=== PATIENT | female | born 1945 | race Caucasian/White ===

== ENCOUNTER 2021-10-24 09:37 | Outpatient (CLI) | payer MEDICARE, BC, SELFPAY ==
[2021-10-24 11:32] VITALS: BMI 48.9
== END 2021-10-24 09:38 | disposition home or self-care (01) ==
LOC: NUTRITION 09:41
PROVIDERS: PCP Family Medicine; Visit Provider Family Medicine
DX: E66.9 Obesity, unspecified (principal); Z68.42 Body mass index [BMI] 45.0-49.9, adult; Z71.3 Dietary counseling and surveillance
CPT/HCPCS: 99211

== ENCOUNTER 2022-10-03 06:33 | Day surgery (SDC) | payer MEDICARE, BC, SELFPAY ==
[2022-10-03] MEDS: TETRACAINE 0.5% OPHTH 1 DROP EYE-RIGHT ×2 (06:45→06:58)
--- NOTE | 2022-10-03 06:47 | SUR.PREOP ---
The eye drops brought by the patient (Ketorolac and Prednisolone) are examined and I have determined they are labeled by the patient's pharmacy for this patient as prescribed by the surgeon. The bottles are intact, recently obtained and appear to be correct.
[2022-10-03] MEDS: KETOROLAC OPHTH 0.5% 1 DROP EYE-RIGHT ×3 (06:55→07:14)
[2022-10-03 07:02] VITALS: BMI 50.5
[2022-10-03 07:08] VITALS: BP 108/63; PULSE 69; RESP 20; TEMP 36.2; O2SAT 95
[2022-10-03] MEDS: TETRACAINE 0.5% OPHTH 2 DROP EYE-RIGHT (08:06)
[2022-10-03] MEDS: BALANCED SALT IRRIG SOLN 15 ML EYE-RIGHT (08:11)
--- NOTE | 2022-10-03 08:31 | W.ANESCHARGE ---
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
[2022-10-03 08:41] VITALS: BP 120/62; PULSE 60; RESP 16; TEMP 36.6; O2SAT 97
--- NOTE | 2022-10-03 08:46 | W.PM.OPTPROC ---
Procedure Note Date of procedure: 10/03/22 Will [facility] bill your pro fee for this procedure?: Yes Procedure Description: SURGEON: Erin Ho MD PREOPERATIVE DIAGNOSIS: Nuclear sclerotic cataract, right eye. POSTOPERATIVE DIAGNOSIS: Nuclear sclerotic cataract, right eye. NAME OF OPERATION: Phacoemulsification of cataract with posterior chamber intraocular lens implantation in the right eye. ANESTHESIA: Topical. ESTIMATED BLOOD LOSS: Less than 2 cc. COMPLICATIONS: None. PATHOLOGY SPECIMEN: None. INDICATIONS: See consult note for details. The risks, benefits and alternatives of the procedure were explained to the patient, who elected to proceed and signed informed consent to do so. PROCEDURE: The patient was brought to the pre-holding area where the right eye was identified as the operative eye. I placed my initials above this eye. The patient received eye drops consisting of 0.5% tetracaine, 1% tropicamide, 10% phenylephrine, and 0.5% ketorolac. The patient was then brought to the operating room where the right eye was again identified as the operative eye. The eye was prepped with Betadine and draped in the usual sterile ophthalmic fashion. A #15 super-sharp blade was used to create a paracentesis site. 1% non-preserved intracameral lidocaine was injected into the anterior chamber. Endocoat was injected into the anterior chamber. A 2.4 mm keratome was used to create a three-plane self-sealing incision 1 mm anterior to the temporal limbus. A cystotome was used to create an anterior capsular leaflet. The Utrata forceps were used to extend this to form a continuous curvilinear capsulorrhexis. Hydrodissection was performed. The cataract was removed with phacoemulsification using the iinems-mea-obzored technique. The irrigation and aspiration tip was used to remove the remaining cortex. Healon was injected into the capsular bag. An SHRUTI ZCB00 intraocular lens of 20.5 diopters was injected into the capsular bag. The irrigation and aspiration tip was used to remove the remaining viscoelastic. Balanced salt solution on a cannula was used to hydrate the wound, and the wound was found to be watertight. The pupil was noted to be round. DISPOSITION: The patient was taken to the recovery room and discharged to home in stable condition. The patient was instructed to call me or go to the emergency department with any sudden change, including dramatic loss of vision, severe pain in the eye or eyebrow region, nausea, or vomiting. The patient will follow up in the clinic tomorrow morning.
== END 2022-10-03 09:25 | disposition home or self-care (01) ==
PROVIDERS: PCP Family Medicine; Visit Provider Ophthalmology
PROC: (CPT 66984; principal; 2022-10-03 06:45)
DX: H25.11 Age-related nuclear cataract, right eye (principal)
CPT/HCPCS: 66984; 00142; 99100; A9270; J2250; V2632

== ENCOUNTER 2023-01-10 11:00 | Outpatient (RCR) | payer MEDICARE, BC, SELFPAY | END 2023-05-10 23:59 | disposition home or self-care (01) | PROVIDERS: PCP Family Medicine; Visit Provider Family Medicine | DX: M25.571 Pain in right ankle and joints of right foot (principal); G89.29 Other chronic pain; R26.81 Unsteadiness on feet; R26.9 Unspecified abnormalities of gait and mobility; M62.81 Muscle weakness (generalized); M25.562 Pain in left knee; M25.561 Pain in right knee; Z51.89 Encounter for other specified aftercare | CPT/HCPCS: 97110; 97162 ==

== ENCOUNTER 2023-04-20 19:58 | Outpatient (CLI) | payer MEDICARE, BC, SELFPAY | END 2023-04-20 19:59 | disposition home or self-care (01) | LOC: AMB 04-22 10:37 | PROVIDERS: PCP Family Medicine; Visit Provider Family Medicine | DX: R42 Dizziness and giddiness (principal); T50.905A Adverse effect of unspecified drugs, medicaments and biological substances, initial encounter; Y92.009 Unspecified place in unspecified non-institutional (private) residence as the place of occurrence of the external cause | CPT/HCPCS: A0425; A0427 ==

== ENCOUNTER 2023-04-20 20:07 | Emergency (ER) | payer MEDICARE, BC, SELFPAY ==
[2023-04-20 20:17] VITALS: BP 142/86; PULSE 111; RESP 16; TEMP 36.6; O2SAT 96; BMI 50.0
--- NOTE | 2023-04-20 20:28 | ED.ALLEREA ---
HPI - Allergic Reaction General Date Seen: 04/20/23 <Richmond Rodriguez - Last Filed: 04/23/23 00:33> Chief complaint: Allergic Reaction <Richmond Rodriguez - Last Filed: 04/23/23 00:33> Stated complaint: Allergic reaction <Richmond Rodriguez - Last Filed: 04/23/23 00:33> Time Seen by Provider: 04/20/23 20:16 <Richmondcaridad Rodriguez - Last Filed: 04/23/23 00:33> Source: patient <Richmond Rodriguez DO - Last Filed: 04/23/23 00:33> Mode of arrival: ambulatory <Richmond Rodriguez Last Filed: 04/23/23 00:33> Limitations: no limitations <Richmond Rodriguez Filed: 04/23/23 00:33> History of Present Illness HPI narrative: Patient is a 78-year-old female presenting to the emergency department for an allergic reaction. She states roughly an hour prior to arrival she developed a pruritic rash on her head, chest, arms. She took 2 25 mg of Benadryl prior to EMS arrival. She denies chest pain, shortness breath, lightheadedness, dizziness, abdominal pain, nausea/vomiting, fevers, chills. She states this has happened before a couple years ago and she was given steroids which helped with the symptoms. Cease states the rash seems to be getting better on her lower abdomen but she thinks it is worse on her chest. She states she is still very itchy. Is not aware of any changes to her medications, laundry detergent, shampoos, soaps or any thing else that might have started this rash. No nothing she can think of what she got a CT scan with IV contrast 6 days ago. No other concerns noted <Richmond Rigoberto TurkReno, - Last Filed: 04/23/23 00:33> Related Data Home medications: Home Medications Medication Instructions Recorded Confirmed Lactobacillus rhamnosus GG 5 1 tab PO DAILY 09/18/22 09/19/22 billion cell chewable tablet (Culturelle Kids Probiotics) albuterol sulfate 90 mcg/actuation 1 - 2 inh inhalation Q4-6H PRN 06/06/23 06/21/23 aerosol inhaler (Ventolin HFA) alpha lipoic acid 200 mg capsule 200 mg PO DAILY 09/18/22 09/19/22 ascorbic acid (vitamin C) 1,000 mg 1 g PO DAILY 09/18/22 09/19/22 capsule calcium carbonate 1,000 tab PO PRN 09/18/22 mg-magnesium hydroxide 200 mg chewable tablet (Antacid (calcium carb-magnesium hyd)) epinephrine 0.3 mg/0.3 mL 0.3 ml IM Q5-15M PRN 09/18/22 09/19/22 injection, auto-injector (EpiPen 2-Ino) magnesium glycinate 100 mg tablet 400 mg PO DAILY 09/18/22 09/19/22 (Mag Glycinate) magnesium oxide 400 mg (241.3 mg 400 mg PO DAILY 09/18/22 09/19/22 magnesium) tablet (MagOx) vitamin B complex 1 cap PO DAILY 09/18/22 09/19/22 Previous Rx's Medication Instructions Recorded prednisone 20 mg tablet 40 mg (2 x 20 mg) PO DAILY #8 tabs 04/20/23 <Richmond Rodriguez DO - Last Filed: 04/23/23 00:33> Allergies/adverse reactions: Allergies Allergy/AdvReac Type Severity Reaction Status Date / Time lactose Allergy Verified 09/19/22 07:29 latex Allergy Verified 09/19/22 07:29 perfume Allergy Verified 09/19/22 07:29 Sulfa (Sulfonamide Allergy Verified 09/19/22 07:29 Antibiotics) <Richmond Rodriguez DO - Last Filed: 04/23/23 00:33> Review of Systems Status of ROS Reports: 10 or more systems reviewed and unremarkable except as noted in History and below <Richmond Rodriguez DO - Last Filed: 04/23/23 00:33> [facility] Medical History: Medical History Binge eating disorder ?F50.81 - Binge eating disorder (ICD-10) Pure hypercholesterolemia ?E78.00 - Pure hypercholesterolemia, unspecified (ICD-10) Kidney stones ?N20.0 - Calculus of kidney (ICD-10) Hx of osteopenia ?Z87.39 - Personal history of other diseases of the musculoskeletal system and connective tissue (ICD-10) 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 ?F33.41 - Major depressive disorder, recurrent, in partial remission (ICD-10) DJD (degenerative joint disease) of knee ?M17.9 - Osteoarthritis of knee, unspecified (ICD-10) Mild intermittent asthma without complication ?J45.20 - Mild intermittent asthma, uncomplicated (ICD-10) <Richmond Rodriguez DO - Last Filed: 04/23/23 00:33> Surgical History: Surgical History Hx of skin graft ?Z94.5 - Skin transplant status (ICD-10) Hx of left breast biopsy ?Z98.890 - Other specified postprocedural states (ICD-10) History of right breast biopsy ?Z98.890 - Other specified postprocedural states (ICD-10) Hx of total knee replacement ?Z96.659 - Presence of unspecified artificial knee joint (ICD-10) <Richmond Rodriguez DO - Last Filed: 04/23/23 00:33> Social History: Social History Smoking Status: Never smoker Do you use any of these nicotine containing products: None How often do you have a drink containing alcohol: never How often do you have six or more drinks on one occasion: Never AUDIT-C Alcohol total score: 0 Non-prescribed substance use: denies use Caffeine: Yes Are you using contraception or practicing any form of control: No <Richmond Rodriguez DO - Last Filed: 04/23/23 00:33> Exam Narrative: Exam Narrative: Const: Well-nourished, Well-developed, in mild distress Eyes: PERRL, no conjunctival injection, and symmetrical lids HENT: Atraumatic external nose and ears. Moist mucous membranes. Neck: Symmetric, trachea midline, No thyromegaly. CVS: RRR, No murmurs or gallops. Peripheral pulses 2+ and equal in all extremities RESP: Unlabored respiratory effort. Clear to auscultation bilaterally. GI: Nontender/Nondistended, No rebound or guarding. MSK:Extremities w/o deformity, Normal Active ROM Skin: Warm, Dry. Erythematous rash seen to chest and arms Neuro: Normal Muscle tone, No focal neurological deficits. Psych: Awake, Alert, & Oriented x3. Appropriate mood and affect. <Richmond Rodriguez DO - Last Filed: 04/23/23 00:33> Const: Vital Signs, click to edit/add: Vital Signs - 24 hr 04/20/23 20:17 Temperature 97.9 F Pulse Rate [Pulse Oximeter] 111 H Respiratory Rate 16 Blood Pressure [Ri ght Upper Arm] 142/86 H Pulse Oximetry 96 Oxygen Delivery Me thod Room Air <Richmond Rodriguez DO - Last Filed: 04/23/23 00:33> Vital Signs, click to edit/add: Vital Signs - 24 hr 04/20/23 20:17 Temperature 97.9 F Pulse Rate [Pulse Oximeter] 111 H Respiratory Rate 16 Blood Pressure [Ri ght Upper Arm] 142/86 H Pulse Oximetry 96 Oxygen Delivery Me thod Room Air <Abdoulaye Nicole MD - Last Filed: 05/03/23 20:36> Course Course ED Course: Corey -- Received Ms. Rolle at change of shift pending medication effect for allergic reaction from uncertain exposure. Was already noted to be improving. Waiting standard post medication time. Records and allergies are reviewed Improved and without further event. See discharge plan per Dr. Rodriguez <Abdoulaye Nicole MD - Last Filed: 05/03/23 20:36> Vital Signs Vital signs: Initial Vital Signs Temperature 97.9 F 04/20/23 20:17 Temperature Source Temporal Artery Scan 04/20/23 20:17 Pulse Rate 111 H 04/20/23 20:17 Pulse Rhythm Regular 04/20/23 20:17 Respiratory Rate 16 04/20/23 20:17 Blood Pressure 142/86 H 04/20/23 20:17 Blood Pressure Mean 104 04/20/23 20:17 Blood Pressure Position Sitting 04/20/23 20:17 Pulse Oximetry 96 04/20/23 20:17 Oxygen Delivery Method Room Air 04/20/23 20:17 Vital Signs Temperature 97.9 F 04/20/23 20:17 Pulse Rate 111 H 04/20/23 20:17 Respiratory Rate 16 04/20/23 20:17 Blood Pressure 142/86 H 04/20/23 20:17 Pulse Oximetry 96 04/20/23 20:17 Oxygen Delivery Method Room Air 04/20/23 20:17 Temperature 97.9 F 04/20/23 20:17 Pulse Rate 70 04/20/23 21:13 Respiratory Rate 16 04/20/23 21:13 Blood Pressure 124/75 04/20/23 21:13 Pulse Oximetry 97 04/20/23 21:13 Oxygen Delivery Method Room Air 04/20/23 21:13 <Richmond Rodriguez DO - Last Filed: 04/23/23 00:33> Initial Vital Signs Temperature 97.9 F 04/20/23 20:17 Temperature Source Temporal Artery Scan 04/20/23 20:17 Pulse Rate 111 H 04/20/23 20:17 Pulse Rhythm Regular 04/20/23 20:17 Respiratory Rate 16 04/20/23 20:17 Blood Pressure 142/86 H 04/20/23 20:17 Blood Pressure Mean 104 04/20/23 20:17 Blood Pressure Position Sitting 04/20/23 20:17 Pulse Oximetry 96 04/20/23 20:17 Oxygen Delivery Method Room Air 04/20/23 20:17 Vital Signs Temperature 97.9 F 04/20/23 20:17 Pulse Rate 111 H 04/20/23 20:17 Respiratory Rate 16 04/20/23 20:17 Blood Pressure 142/86 H 04/20/23 20:17 Pulse Oximetry 96 04/20/23 20:17 Oxygen Delivery Method Room Air 04/20/23 20:17 Temperature 97.9 F 04/20/23 20:17 Pulse Rate 70 04/20/23 21:13 Respiratory Rate 16 04/20/23 21:13 Blood Pressure 124/75 04/20/23 21:13 Pulse Oximetry 97 04/20/23 21:13 Oxygen Delivery Method Room Air 04/20/23 21:13 <Abdoulaye Nicole MD - Last Filed: 05/03/23 20:36> Medications Administered Medications: Discontinued Medications Generic Name Dose Route Start Last Admin Trade Name Rogers PRN Reason Stop Dose Admin Famotidine 40 mg 04/20/23 20:21 04/20/23 20:39 Famotidine 20 Mg Tablet PO 04/20/23 20:22 40 mg ONCE ONE Administration Methylprednisolone Sodium Succinate 125 mg 04/20/23 20:21 04/20/23 20:39 Methylprednisolone Sod Succ 62.5 Mg/Ml (125) IVP 04/20/23 20:22 125 mg ONCE ONE Administration Prednisone 20 mg 04/21/23 09:00 04/20/23 22:35 Prednisone 20 Mg Tablet PO 20 mg BID KIMBERLEY Administration <Richmond Rodriguez DO - Last Filed: 04/23/23 00:33> Discontinued Medications Generic Name Dose Route Start Last Admin Trade Name Rogers PRN Reason Stop Dose Admin Famotidine 40 mg 04/20/23 20:21 04/20/23 20:39 Famotidine 20 Mg Tablet PO 04/20/23 20:22 40 mg ONCE ONE Administration Methylprednisolone Sodium Succinate 125 mg 04/20/23 20:21 04/20/23 20:39 Methylprednisolone Sod Succ 62.5 Mg/Ml (125) IVP 04/20/23 20:22 125 mg ONCE ONE Administration Prednisone 20 mg 04/21/23 09:00 04/20/23 22:35 Prednisone 20 Mg Tablet PO 20 mg BID KIMBERLEY Administration <Abdoulaye Nicole MD - Last Filed: 05/03/23 20:36> MDM - Allergic Reaction MDM Narrative Medical decision making narrative: Patient is a 78-year-old female presenting to the emergency department for a rash. Initially when she arrived she is tachycardic which she was anxious at that time and when I examined her heart rate was in the low 90s. She is not having any signs of anaphylaxis at this time. She thinks it could be related to COVID but she is not having any symptoms of COVID. She does want a COVID test which was ordered. She was given Solu-Medrol as she states that helped last time with her symptoms. She will also be given some Pepcid to help with the rash. She does note she thinks it is getting better on her abdomen already. <Richmond Rodriguez DO - Last Filed: 04/23/23 00:33> Lab Data Labs: Lab Results 04/20/23 Range/Units 20:45 SARS-CoV-2 (PCR) Negative SARS-CoV-2 (Negative) Influenza Type A (PCR) Negative PCR FLU A (Negative) Influenza Type B (PCR) Negative PCR FLU B (Negative) RSV (PCR) Negative PCR RSV (Negative) <Richmond Rodriguez DO - Last Filed: 04/23/23 00:33> Lab Results 04/20/23 Range/Units 20:45 SARS-CoV-2 (PCR) Negative SARS-CoV-2 (Negative) Influenza Type A (PCR) Negative PCR FLU A (Negative) Influenza Type B (PCR) Negative PCR FLU B (Negative) RSV (PCR) Negative PCR RSV (Negative) <Abdoulaye Nicole MD - Last Filed: 05/03/23 20:36> Discharge Plan Discharge Clinical Impression: Allergic reaction <Richmond Rodriguez DO - Last Filed: 04/23/23 00:33> Patient Disposition: Home w/ Parent or Adult <Richmond Rodriguez DO - Last Filed: 04/23/23 00:33> Condition: Improved <Richmond Rodriguez DO - Last Filed: 04/23/23 00:33> Instructions: General Allergic Reaction (ED) <Richmond Rodriguez DO - Last Filed: 04/23/23 00:33> Additional Instructions: Take the prednisone daily for the next 4 days starting on 04/21/2023. Return to emergency department for new or worsening symptoms. Use Benadryl for your itching <Richmond Rodriguez DO - Last Filed: 04/23/23 00:33> Prescriptions: New prednisone 20 mg tablet 40 mg PO DAILY Qty: 8 0RF No Action albuterol sulfate [Ventolin HFA] 90 mcg/actuation HFA aerosol inhaler 1 - 2 inh inhalation Q4-6H PRN alpha lipoic acid 200 mg capsule 200 mg PO DAILY ascorbic acid (vitamin C) 1,000 mg capsule 1 g PO DAILY vitamin B complex Capsule 1 cap PO DAILY Antacid (calcium carb-mag hyd) 1,000-200 mg tablet,chewable PO PRN epinephrine [EpiPen 2-Ino] 0.3 mg/0.3 mL auto-injector 0.3 ml IM Q5-15M PRN Rx Instructions: do not exceed 3 doses per episode Culturelle Kids Probiotics 5 billion cell tablet,chewable 1 tab PO DAILY magnesium oxide [MagOx] 400 mg (241.3 mg magnesium) tablet 400 mg PO DAILY Mag Glycinate 100 mg tablet 400 mg PO DAILY <Richmond Rodriguez DO - Last Filed: 04/23/23 00:33> Follow Up/Referrals: Gopi Regan DO [Referring] - <Richmond Rodriguez DO - Last Filed: 04/23/23 00:33>
[2023-04-20] MEDS: METHYLPREDNISOLONE SOD SUCC 62.5 MG/ML (125) 125 MG IVP (20:39)
[2023-04-20] MEDS: FAMOTIDINE 20 MG TABLET 40 MG PO (20:39)
[2023-04-20 21:13] VITALS: BP 124/75; PULSE 70; RESP 16; O2SAT 97
[2023-04-20 21:27] LABS: PCR FLU A Negative PCR FLU A (Negative); PCR FLU B Negative PCR FLU B (Negative); PCR RSV Negative PCR RSV (Negative)
[2023-04-20 22:17] LABS: SARS PCR* Negative SARS-CoV-2 (Negative)
[2023-04-20] MEDS: predniSONE 20 MG TABLET PO ×2 (22:34→22:35)
== END 2023-04-20 22:35 | disposition home or self-care (01) ==
PROVIDERS: Emergency Provider Student in an Organized Health Care Education/Training Program; PCP Family Medicine
DX: R21 Rash and other nonspecific skin eruption (principal); T78.40XA Allergy, unspecified, initial encounter
CPT/HCPCS: 87631; 96374; 99283; 99284; A9270; J2930; J7512

== ENCOUNTER 2024-01-21 16:47 | Emergency (ER) | payer MEDICARE, BC, SELFPAY ==
[2024-01-21 16:54] VITALS: BP 156/70; PULSE 73; RESP 22; TEMP 36.3; O2SAT 95; BMI 50.0
--- NOTE | 2024-01-21 17:12 | CRLHL7_ITS ---
For Patients: As a result of the Century Cures Act, medical imaging exams and procedure reports are released immediately into your electronic medical record. You may view this report before your referring provider. If you have questions, please contact your health care provider. INDICATION: Shortness of breath. TECHNIQUE: Chest 2 view. COMPARISON: None. FINDINGS: No focal consolidation, pleural effusion, or pneumothorax. Normal heart size and pulmonary vascularity. Degenerative changes of the spine. Old left lateral rib fractures. IMPRESSION: No acute cardiopulmonary findings. Dictated by Leilani Pina MD @ 01/21/2024 6:04:00 PM (Electronically Signed)
--- NOTE | 2024-01-21 17:35 | ED_ITS ---
HPI - General Adult General Chief complaint: Shortness of Breath/Dyspnea Stated complaint: Shortness of Breath Time Seen by Provider: 01/21/24 17:03 Source: patient Mode of arrival: ambulatory Limitations: no limitations History of Present Illness HPI narrative: 78-year-old female coming in today complaining shortness of breath. Patient states she was at her clinic appointment approximately 4-1/2 hours ago when she all the sudden developed acute shortness of breath when she had to walk from the waiting room to the exam room. When she got to the exam room it resolved however when she had walked back out to her car the shortness of breath came back and she had to stop multiple times for she got to her car. Once in her car her oil light came a so instead of coming to the hospital [facility] [facility]. After that she went home to pack and overnight big presented to the hospital. She denies any chest pain. She has no new cough. She states that she did wash her floors a few days ago with suite for wet wipes and it caused her asthma to act up. She states that she has been using her albuterol inhaler approximately 2 times more than the prescription states. She denies any fevers, nausea or vomiting. She denies abdominal discomfort. She denies any swelling of the extremities. No changes in her appetite. Related Data Home Medications ?Medication ?Instructions ?Recorded ?Confirmed Lactobacillus rhamnosus GG 5 1 tab PO DAILY 09/18/22 09/19/22 billion cell chewable tablet ([employer] Probiotics) albuterol sulfate 90 mcg/actuation 1 - 2 inh inhalation Q4-6H PRN 09/18/22 10/03/22 aerosol inhaler (Ventolin HFA) alpha lipoic acid 200 mg capsule 200 mg PO DAILY 09/18/22 09/19/22 ascorbic acid (vitamin C) 1,000 mg 1 g PO DAILY 09/18/22 09/19/22 capsule calcium carbonate 1,000 tab PO PRN 09/18/22 mg-magnesium hydroxide 200 mg chewable tablet (Antacid (calcium carb-magnesium hyd)) epinephrine 0.3 mg/0.3 mL 0.3 ml IM Q5-15M PRN 09/18/22 09/19/22 injection, auto-injector (EpiPen 2-Ino) magnesium glycinate 100 mg (as 400 mg PO DAILY 09/18/22 09/19/22 glycinate) tablet (Mag Glycinate) magnesium oxide 400 mg (241.3 mg 400 mg PO DAILY 09/18/22 09/19/22 magnesium) tablet (MagOx) vitamin B complex 1 cap PO DAILY 09/18/22 09/19/22 Previous Rx's ?Medication ?Instructions ?Recorded prednisone 20 mg tablet 40 mg (2 x 20 mg) PO DAILY #8 tabs 04/20/23 Allergies Allergy/AdvReac Type Severity Reaction Status Date / Time lactose Allergy Verified 09/19/22 07:29 latex Allergy Verified 09/19/22 07:29 perfume Allergy Verified 09/19/22 07:29 Sulfa (Sulfonamide Allergy Verified 09/19/22 07:29 Antibiotics) Review of Systems Status of ROS: Reports: 10 or more systems reviewed and unremarkable except as noted in History and below [facility] Medical History Binge eating disorder ?F50.81 - Binge eating disorder (ICD-10) Pure hypercholesterolemia ?E78.00 - Pure hypercholesterolemia, unspecified (ICD-10) Kidney stones ?N20.0 - Calculus of kidney (ICD-10) Hx of osteopenia ?Z87.39 - Personal history of other diseases of the musculoskeletal system and connective tissue (ICD-10) 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 ?F33.41 - Major depressive disorder, recurrent, in partial remission (ICD-10) DJD (degenerative joint disease) of knee ?M17.9 - Osteoarthritis of knee, unspecified (ICD-10) Mild intermittent asthma without complication ?J45.20 - Mild intermittent asthma, uncomplicated (ICD-10) Surgical History Hx of skin graft ?Z94.5 - Skin transplant status (ICD-10) Hx of left breast biopsy ?Z98.890 - Other specified postprocedural states (ICD-10) History of right breast biopsy ?Z98.890 - Other specified postprocedural states (ICD-10) Hx of total knee replacement ?Z96.659 - Presence of unspecified artificial knee joint (ICD-10) Social History Smoking Status: Never smoker Do you use any of these nicotine containing products: None How often do you have a drink containing alcohol: never How often do you have six or more drinks on one occasion: Never AUDIT-C Alcohol total score: 0 Non-prescribed substance use: denies use Caffeine: Yes Are you using contraception or practicing any form of control: No service: No Exam Narrative: Exam Narrative: Obese, well-developed patient in no acute distress. Alert and oriented. Answers questions appropriately. Mood and affect are appropriate. She is in very good spirits, she is very talkative. Thoughts are goal oriented and rational. No tangential or magical thinking noted. Patient speaks in full sentences without needing to catch her breath. HEENT: Normocephalic atraumatic. Pupils are equally round reactive to light. Extraocular muscles are intact. Conjunctivae are moist without any icterus noted. Moist mucous membranes. Posterior pharynx is normal. Neck is soft without any lymphadenopathy. Cardiovascular: Heart is regular rate and rhythm S1 and S2 are present without any murmurs. Lungs: Decreased breath sounds bilaterally with end-expiratory wheezes bilaterally. Abdomen: Soft and nontender nondistended with normal bowel sounds. Extremities: Bilateral lower extremities are without edema. Skin: Well perfused. Const: Vital Signs, click to edit/add: Vital Signs - 24 hr 01/21/24 16:54 01/21/24 18:25 Temperature 97.3 F L Pulse Rate [Pulse Oximeter] 73 Respiratory Rate 22 Blood Pressure [Ri ght Upper Arm] 156/70 H Pulse Oximetry 95 Oxygen Delivery Me thod Room Air Fraction of Inspir ed Oxygen 10 Course Course ED Course: Patient started on a DuoNeb and given 50 mg of p.o. prednisone. Patient felt significant improvement after treatment. EKG, read by me, shows normal sinus rhythm with a pulse of 70. CBC is normal. BMP is normal. Troponin is normal. CRP is unremarkable at 1.2. Triple swab is negative. Chest x-ray, read by me, does not show any acute pathology. Vital Signs Vital signs: Initial Vital Signs Temperature 97.3 F L 01/21/24 16:54 Temperature Source Temporal Artery Scan 01/21/24 16:54 Pulse Rate 73 01/21/24 16:54 Respiratory Rate 22 01/21/24 16:54 Blood Pressure 156/70 H 01/21/24 16:54 Blood Pressure Mean 98 01/21/24 16:54 Blood Pressure Position Sitting 01/21/24 16:54 Pulse Oximetry 95 01/21/24 16:54 Oxygen Delivery Method Room Air 01/21/24 16:54 Vital Signs Temperature 97.3 F L 01/21/24 16:54 Pulse Rate 73 01/21/24 16:54 Respiratory Rate 22 01/21/24 16:54 Blood Pressure 156/70 H 01/21/24 16:54 Pulse Oximetry 95 01/21/24 16:54 Oxygen Delivery Method Room Air 01/21/24 16:54 Temperature 97.3 F L 01/21/24 16:54 Pulse Rate 73 01/21/24 16:54 Respiratory Rate 22 01/21/24 16:54 Blood Pressure 156/70 H 01/21/24 16:54 Pulse Oximetry 95 01/21/24 16:54 Oxygen Delivery Method Room Air 01/21/24 16:54 Fraction of Inspired Oxygen 10 01/21/24 18:25 Medications Administered Medications: Discontinued Medications Generic Name Dose Route Start Last Admin Trade Name Freq PRN Reason Stop Dose Admin Albuterol/Ipratropium 1 neb 01/21/24 17:12 01/21/24 17:36 Iprat-Albut 0.5-2.5 Mg/3 Ml Neb IH 01/21/24 17:13 1 neb ONCE ONE Administration Prednisone 50 mg 01/21/24 17:12 01/21/24 17:36 Prednisone 10 Mg Tablet PO 01/21/24 17:13 50 mg ONCE ONE Administration Medical Decision Making [facility] Narrative Medical decision making narrative: 78-year-old female with acute asthma exacerbation. Patient does not want to be in a prednisone taper. Therefore we will do 5 days of 40 mg prednisone. Recommended using her inhaler as prescribed. Follow-up with her PCP within the next week. Lab Data Lab results reviewed: Yes I reviewed the patient's lab results Labs: Lab Results 01/21/24 01/21/24 Range/Units 17:20 17:28 WBC 7.25 (4.50-11.00) K/uL RBC 4.51 (4.00-5.20) m/uL Hgb 13.9 (12.0-16.0) gm/dL Hct 42.8 (33.0-51.0) % MCV 95 (80-100) fL MCH 31 (26-34) pg MCHC 33 (32-36) gm/dL RDW Coeff of Micah 13.3 (11.5-15.5) % Plt Count 247 (140-440) K/uL Neut % (Auto) 65.5 (42.0-72.0) % Lymph % (Auto) 22.6 (20-44) % Bertie % (Auto) 9.1 (0.0-11.0) % Eos % (Auto) 2.5 (0.0-7.0) % Baso % (Auto) 0.3 (0.0-3.0) % Neut # (Auto) 4.75 (1.7-7.0) K/uL Lymph # (Auto) 1.64 (0.90-2.90) K/uL Bertie # (Auto) 0.70 (0.00-0.90) K/UL Eos # (Auto) 0.18 (0.00-0.50) K/uL Baso # (Auto) 0.02 (0.00-0.30) K/uL Abs Immat Gran (auto) 0.00 (0.00-0.30) K/uL Imm/Tot Granulo (auto) 0.0 % Sodium 138 (135-149) mmol/L Potassium 4.2 (3.6-5.1) mmol/L Chloride 106 (96-114) mmol/L Carbon Dioxide 25 (20-32) mmol/L Anion Gap 7 (7-15) mEq/L BUN 17 (7-30) mg/dL Creatinine 0.9 (0.5-1.5) mg/dL Estimated Creat Clear 44.10 Estimated GFR 66 ml/min Glucose 105 (60-115) mg/dL Lactate 0.7 (0.5-1.9) mmol/L Calcium 9.7 (8.4-10.6) mg/dL Troponin I < 0.01 L (0.01-0.04) ng/mL C-Reactive Protein 1.2 H (0.5-1.0) mg/dL SARS-CoV-2 (PCR) Negative SARS-CoV-2 (Negative) Influenza Type A (PCR) Negative PCR FLU A (Negative) Influenza Type B (PCR) Negative PCR FLU B (Negative) RSV (PCR) Negative PCR RSV (Negative) Imaging Data Chest x-ray: Attestation: I have reviewed the pertinent imaging results. Radiologist's impression: Chest 2 view. COMPARISON: None. FINDINGS: No focal consolidation, pleural effusion, or pneumothorax. Normal heart size and pulmonary vascularity. Degenerative changes of the spine. Old left lateral rib fractures. IMPRESSION: No acute cardiopulmonary findings. ECG Data Attestation: I personally reviewed and interpreted this ECG as follows: Discharge Plan Discharge Clinical Impression: Asthma with acute exacerbation Patient Disposition: Home, Self-Care Condition: Stable Additional Instructions: Take all steroid as prescribed. Take your 1st dose tomorrow as you already received a dose in the ER today. Do not use your inhaler more often than prescribed. If you continue to be short of breath, follow-up with your primary care provider. If your breathing worsens, then return to the ER. Prescriptions: No Action albuterol sulfate [Ventolin HFA] 90 mcg/actuation HFA aerosol inhaler 1 - 2 inh inhalation Q4-6H PRN alpha lipoic acid 200 mg capsule 200 mg PO DAILY ascorbic acid (vitamin C) 1,000 mg capsule 1 g PO DAILY vitamin B complex Capsule 1 cap PO DAILY Antacid (calcium carb-mag hyd) 1,000-200 mg tablet,chewable PO PRN epinephrine [EpiPen 2-Ino] 0.3 mg/0.3 mL auto-injector 0.3 ml IM Q5-15M PRN Rx Instructions: do not exceed 3 doses per episode [employer] Pro[employer]otics 5 billion cell tablet,chewable 1 tab PO DAILY magnesium oxide [MagOx] 400 mg (241.3 mg magnesium) tablet 400 mg PO DAILY Mag Glycinate 100 mg tablet 400 mg PO DAILY prednisone 20 mg tablet 40 mg PO DAILY Qty: 8 0RF Follow Up/Referrals: Hellen Nuñez MD [Primary Care Provider] - Stand Alone Forms: [employer] Info Instructions
[2024-01-21 17:36] LABS: Lactate* 0.7 mmol/L (0.5-1.9)
[2024-01-21] MEDS: predniSONE 10 MG TABLET 50 MG PO (17:36)
[2024-01-21] MEDS: IPRAT-ALBUT 0.5-2.5 MG/3 ML NEB 1 NEB IH (17:36)
[2024-01-21 18:00] VITALS: RESP 14; O2SAT 96
[2024-01-21 18:01] LABS: Chloride* 106 mmol/L (96-114); Sodium* 138 mmol/L (135-149)
[2024-01-21 18:02] LABS: Potassium* 4.2 mmol/L (3.6-5.1)
[2024-01-21 18:04] LABS: Creatinine* 0.9 mg/dL (0.5-1.5); Estimated Glomerular Filt Rate 66 ml/min
[2024-01-21 18:05] LABS: Anion Gap 7 mEq/L (7-15); Blood Urea Nitrogen* 17 mg/dL (7-30); Calcium* 9.7 mg/dL (8.4-10.6); Carbon Dioxide* 25 mmol/L (20-32); Glucose* 105 mg/dL (60-115)
[2024-01-21 18:08] LABS: C Reactive Protein* 1.2 mg/dL (0.5-1.0)
[2024-01-21 18:28] LABS: Troponin I* < 0.01 ng/mL (0.01-0.04)
[2024-01-21 18:34] LABS: Basophils Absolute Auto 0.02 K/uL (0.00-0.30); Basophils Percent Auto 0.3 % (0.0-3.0); Eosinophils Absolute Auto 0.18 K/uL (0.00-0.50); Eosinophils Percent Auto 2.5 % (0.0-7.0); Hematocrit 42.8 % (33.0-51.0); Hemoglobin* 13.9 gm/dL (12.0-16.0); Lymphocytes Absolute Auto 1.64 K/uL (0.90-2.90); Lymphocytes Percent Auto 22.6 % (20-44); Mean Corpuscular HGB Conc 33 gm/dL (32-36); Mean Corpuscular Hemoglobin 31 pg (26-34); Mean Corpuscular Volume 95 fL (80-100); Monocytes Percent Auto 9.1 % (0.0-11.0); Neutrophils Absolute Auto 4.75 K/uL (1.7-7.0); Neutrophils Percent Auto 65.5 % (42.0-72.0); Platelet Count* 247 K/uL (140-440); RDW Coefficient of Variation % 13.3 % (11.5-15.5); Red Blood Count 4.51 m/uL (4.00-5.20); White Blood Count* 7.25 K/uL (4.50-11.00)
[2024-01-21 18:35] LABS: Slide Review Reflex No
[2024-01-21 19:00] LABS: PCR FLU A Negative PCR FLU A (Negative); PCR FLU B Negative PCR FLU B (Negative); PCR RSV Negative PCR RSV (Negative); SARS PCR* Negative SARS-CoV-2 (Negative)
[2024-01-21 19:32] VITALS: BP 146/85; PULSE 66; RESP 12
== END 2024-01-21 19:33 | disposition home or self-care (01) ==
PROVIDERS: Emergency Provider Family Medicine; PCP Family Medicine
DX: J45.901 Unspecified asthma with (acute) exacerbation (principal)
CPT/HCPCS: 36415; 71046; 80048; 83605; 84484; 85025; 86140; 87631; 93005; 99284; J7512

== ENCOUNTER 2024-05-08 09:00 | Outpatient (RCR) | payer MEDICARE, BC, SELFPAY | END 2024-09-05 23:59 | disposition home or self-care (01) | PROVIDERS: PCP Family Medicine; Visit Provider Family Medicine | DX: N39.46 Mixed incontinence (principal); M17.0 Bilateral primary osteoarthritis of knee; Z96.659 Presence of unspecified artificial knee joint; Z51.89 Encounter for other specified aftercare | CPT/HCPCS: 97110; 97140; 97162; 97163; 97535 ==